=== PATIENT | female | born 1965 | race Hispanic/Latino ===

== ENCOUNTER → 2018-04-18 | Day surgery (SDC) | payer BC ==
[~2018-04-18] MED LIST: ASPIR 8181 MG PO; BALSALAZIDE DI750 MG PO; CINNAMON PO; COLACE100 MG PO; DIOVAN160 MG PO; LOSARTAN POTASS50 MG PO; MATZIM LA360 MG PO; MELOXICAM15 MG PO; MIDAZOLAM HCL 2 MG/2 ML VIAL ONE; PROPOFOL IV EMULSION 10 MG/ML 50 ML VIAL ONE; TRIAMTERENE-HCTZ1 EA PO; UCERIS PO; ZYRTEC10 M3 PO; [UNRECOGNIZED DRUG - OTHER] PO
[2018-04-18 09:30] VITALS: BP 132/77
--- NOTE | 2018-04-18 10:24 | Operative Report ---
DATE OF PROCEDURE: April 18, 2018 GASTROINTESTINAL PROCEDURE NOTE PREOPERATIVE DIAGNOSES: 1. Hematochezia. 2. History of Crohn's disease. POSTOPERATIVE DIAGNOSIS: Area in the sigmoid colon of active colitis. The area before, near, and after was normal. PROCEDURE PERFORMED: Colonoscopy. PREOPERATIVE MEDICATIONS: Consisted of general anesthesia. DESCRIPTION OF PROCEDURE: Using an [email or web address] video colonoscope, it was inserted into the patient's rectum and advanced without difficulty up into the sigmoid colon. At about 29 cm, we began picking up some edematous mucosa with erythema and friability, but no active ulcerations. This extended up to the beginning of the descending colon. Biopsies were obtained from the descending colon around to the cecum. The colon was normal. No polypoid lesions or tumor masses were seen. The colonoscope was withdrawn back down to the rectum, and the procedure was ended. In conclusion, we have findings of an active colitis, probably Crohn's colitis isolated to the sigmoid colon area. Otherwise, normal examination. Job#: [id number]
== END | disposition home or self-care (01) ==
LOC: OR 07:04
PROVIDERS: ATTEND Internal Medicine Gastroenterology
DX: K50.00 Crohn's disease of small intestine without complications (principal); I10 Essential (primary) hypertension; Z88.2 Allergy status to sulfonamides; Z88.8 Allergy status to other drugs, medicaments and biological substances; Z01.810 Encounter for preprocedural cardiovascular examination; Z68.42 Body mass index [BMI] 45.0-49.9, adult; Z80.0 Family history of malignant neoplasm of digestive organs
CPT/HCPCS: 45380; 93005; J2250; 45378; 45384

== ENCOUNTER 2020-03-12 18:24 | Emergency (ER) | payer BC, OTHER ==
[~2020-03-12] VITALS: Ht 160 cm; Wt 121.6 kg
[~2020-03-12 18:24] MED LIST changes: -MIDAZOLAM HCL 2 MG/2 ML VIAL ONE; -PROPOFOL IV EMULSION 10 MG/ML 50 ML VIAL ONE
--- OUTSIDE RECORDS SUMMARY | 2020-03-12 19:10 | XMS REPORT | Continuity of Care Document ---
Author Author Inofile EDGAR [facility] Address Unknown Phone Unavailable Care Team Providers Care Lokie Engineer Name Role Phone [employer] Unavailable Un available Problems Problem Status Onset Date Classification Date Reported Comments Source Acute Maxillary Sinusitis Acti ve 07/14/2013 [facility] Medications Medication Details Route Status Patient Instructions Ordering Provider Order Date Source Cefdinir 300 MG Oral Capsule ; Start Date: 07/14/2013; End Date: (Active) Active 07/14/2013 [facility] MethylPREDNISolone 4 MG Oral Tablet ; Start Date: 07/14/2013; End Date: (Active) Active 07/14/2013 [facility] Matzim LA 360 MG Oral Tablet Extended Release 24 Hour (Active) Active [facility] Diovan 160 MG Oral Tablet (Ac tive) Active [facility] Triamterene-HCTZ 37.5-25 MG Oral Tablet (Active) Active [facility] Levocetirizine Dihydrochloride 5 MG Oral Tablet (Active) Active [facility] TABS (Active) Active [facility] Allergies, Adverse Reactions, Alerts Substance Category Reaction Severity Reaction type Status Date Reported Comments Source Sulfa Drugs drug allergy drug allergy Active [facility] Tavist TABS drug allergy drug allergy Active [facility] Immunizations No Data Provided for This Section Results No Data Provided for This Section Pathology Reports No Data Provided for This Section Diagnostic Reports No Data Provided for This Section Consultation Notes No Data Provided for This Section Discharge Summaries No Data Provided for This Section History and Physicals No Data Provided for This Section Vital Signs No Data Provided for This Section Encounters Location Location Details Encounter Type Encounter Number Reason For Visit Attending Provider ADM Date DC Date Status Source AUDIT [id number] 07/14/2013 07/14/2013 [facility] Procedures No Data Provided for This Section Assessment and Plan No Data Provided for This Section Plan of Care No Data Provided for This Section Social History Social History Date Source Marital History - Currently (Active) Never A Smoker (Active) Never Drank Alcohol (Active) 07/14/2013 [facility] Family History Value Date S ource Fraternal history of Diabetes Mellitus ( V18.0); (Active) Sororal history of Arthritis (V17.7); (Active) 07/14/2013 [facility] Advance Directives Order Name Results Value Date Source Advance Directives Advance Dir ectives No Advance Directives available. 07/14/2013 [facility] Functional Status No Data Provided for This Section
--- OUTSIDE RECORDS SUMMARY | 2020-03-12 19:10 | XMS REPORT ---
Author Author EDGAR Velez Organization Unknown Address Unknown Phone Care Team Providers Care Auxiliary Equipment Tender Name Role Phone Reyna Velez PP Unavailable Reason for Referral No Reason for Referral was given. History of Present Illness No HPI available. Problems * Normal Routine History And Physical Adult (V70.0); (Active) * Acute Maxillary Sinusitis (461.0); (Active) Medication * Matzim LA 360 MG Oral Tablet Extended Release 24 Hour; TAKE 1 TABLET DAILY. (Active) * Diovan 160 MG Oral Tablet; TAKE 1 TABLET DAILY. (Active) * Triamterene-HCTZ 37.5-25 MG Oral Tablet; TAKE 1 TABLET DAILY PRN (Active) * Levocetirizine Dihydrochloride 5 MG Oral Tablet; TAKE 1 TABLET DAILY. (Active) * [facility] TABS; TAKE 2 TABLET 4 TIMES DAILY (Active) * Cefdinir 300 MG Oral Capsule; TAKE 1 CAPSULE TWICE DAILY UNTIL GONE.; Start Date: 07/14/2013; End Date: (Active) * MethylPREDNISolone 4 MG Oral Tablet; TAKE 1 TABLET DAILY.; Start Date: 07/14/2013; End Date: (Active) Allergies and Adverse Reactions * Sulfa Drugs (Active) * Tavist TABS (Active) Past Medical History * History of Hypertension (401.9); (Resolved) Family History * Fraternal history of Diabetes Mellitus (V18.0); (Active) * Sororal history of Arthritis (V17.7); (Active) Social History * Marital History - Currently (Active) * Never A Smoker (Active) * Never Drank Alcohol (Active) Advance Directives * No Advance Directives available. Encounters * AUDIT 07/14/2013
--- NOTE | 2020-03-12 19:16 | Emergency Department Note ---
History of Present Illnes History of Present Illness Chief Complaint: General Medicine Complaints History of Present Illness This is a 54 year old female presents to the ED [facility]. Patient was attempting to remove money from safe and inadvertantly lost balance and fell on her bottom with impact to the back of the head . Denies LOC or n/v. Historian: Patient Arrival Mode: Car Onset (how long ago): day(s) (1) Radiation: Reports non-radiation Severity: mild Onset quality: sudden Duration (how long): day(s) (1) Progression: unchanged Chronicity: new Context: Reports trauma/injury Relieving factors: none Exacerbating factors: none Associated symptoms: Denies fever/chills, Denies nausea/vomiting Past Medical/Family History Physician Review I have reviewed the patient's past medical and family history. Any updates have been documented here. Past Medical History Recent Fever: No Clinical Suspicion of Infectio: No New/Unexplained Change in Ment: No Past Medical History: Hypertension, Diabetes Past Surgical History: Cholecysctectomy, T&A Social History Smoking Cessation: Never Smoker Counseling Performed: No Alcohol Use: None Any Illegal Drug Use: No Physically hurt or threatened: No Other Any Pre-Existing Lines (PICC,: No Review of Systems Review of Systems Constitutional: Reports no symptoms EENTM: Reports no symptoms Cardiovascular: Reports no symptoms Respiratory: Reports no symptoms Gastrointestinal: Reports no symptoms Genitourinary: Reports no symptoms Musculoskeletal: Reports no symptoms Integumentary: Reports no symptoms Neurological: Reports headache Psychological: Reports no symptoms Endocrine: Reports no symptoms Hematological/Lymphatic: Reports no symptoms Physical Exam Related Data Allergies: Coded Allergies: acetaminophen (Verified Allergy, Unknown, 04/18/18) clemastine (Verified Allergy, Unknown, 04/18/18) pseudoephedrine (Verified Allergy, Unknown, 04/18/18) Uncoded Allergies: SULFA (Allergy, Unknown, 04/18/18) Triage Vital Signs Vital Signs Date Time Temp Pulse Resp B/P (MAP) Pulse Ox O2 Delivery O2 Flow Rate FiO2 03/12/20 18:31 98.3 79 16 158/88 98 Room Air Vital signs reviewed: Yes Physical Exam CONSTITUTIONAL Constitutional: Present well-developed, Present well-nourished HENT HENT: Present normocephalic, Present atraumatic, Present oropharynx clear/moist, Present nose normal HENT L/R: Present left ext ear normal, Present right ext ear normal EYES Eyes: Reports PERRL, Reports conjunctivae normal NECK Neck: Present ROM normal PULMONARY Pulmonary: Present effort normal, Present breath sounds normal CARDIOVASCULAR Cardiovascular: Present regular rhythm, Present heart sounds normal, Present capillary refill normal, Present normal rate GASTROINTESTINAL Abdominal: Present soft, Present nontender, Present bowel sounds normal GENITOURINARY Genitourinary: Present exam deferred SKIN Skin: Present warm, Present dry MUSCULOSKELETAL Musculoskeletal: Present ROM normal NEUROLOGICAL Neurological: Present alert, Present oriented x 3, Present no gross motor or sensory deficits PSYCHOLOGICAL Psychological: Present mood/affect normal, Present judgement normal Results Imaging Imaging results reviewed: Yes Impressions [place] [address] Patient Name: EDGAR RODRIGUEZ MR #: [id number] : 1965 Age/Sex: 54/F Req #: [id number] Adm Physician: Ordered by: JOHN CULLEN DO Report #: [id number] Location: ER Room/Bed: Procedure: [id number] CT/CT BRAIN WO Exam Date: 03/12/20 Exam Time: 1899 REPORT STATUS: Signed CT BRAIN WO HISTORY: Head injury COMPARISON: None. TECHNIQUE: Noncontrast axial scans were obtained from skull base to the vertex. Coronal and sagittal reconstructions obtained from the axial data. One or more of the following dose reduction techniques were used: Automated exposure control, adjustment of the mA and/or kV according to patient size, and/or utilization of iterative reconstruction technique. DISCUSSION: Scalp/Skull: Unremarkable. Brain sulci: Mildly prominent. Ventricles: Mild compensatory dilatation. Extra-axial spaces: No masses or fluid collections. Carotid siphon calcifications. Parenchyma: No abnormal densities. No mass, hemorrhage, or large vascular territory acute infarct. Dural sinuses: No abnormal densities. Sellar/Suprasellar region: Intact. Skull base: Intact. Incidental findings: None. IMPRESSION: 1. No acute intracranial abnormalities. 2. Mild generalized cerebral volume loss. Signed by: Dr. Konstantin Ellis M.D. on 03/12/2020 7:45 PM Dictated By: KONSTANTIN ELLIS MD 44 Transcribed By: BULMARO on 03/12/201944 COPY TO: JOHN CULLEN DO~ Assessment & Plan Medical Decision Making MDM Diff dx: SAH, SDH, epidural hematoma , skull fx, concussion Assessment & Plan Final Impression: (1) Head injury Depart Disposition: HOME, SELF-CARE Last Vital Signs Date Time Temp Pulse Resp B/P (MAP) Pulse Ox O2 Delivery O2 Flow Rate FiO2 03/12/20 18:31 98.3 79 16 158/88 98 Room Air Home Meds Reported Medications Cetirizine Hcl (ZYRTEC) 10 Mg Capsule, 10 MG PO PRN THERAPEUTICALLY SUBSTITUTED WITH LORATIDINE 10MG 04/17/18 Aspirin (ASPIR 81) 81 Mg Tablet.dr, 81 MG PO PRN 04/17/18 [Cinnamon] No Conflict Check, 350 MG PO DAILY 04/17/18 Meloxicam (MELOXICAM) 15 Mg Tablet, 15 MG PO DAILY 04/17/18 Losartan Potassium (LOSARTAN POTASSIUM) 50 Mg Tablet, 50 MG PO DAILY 04/17/18 Balsalazide Disodium (BALSALAZIDE DISODIUM) 750 Mg Capsule, 750 MG PO 2TID 03/14/14 Triamterene/Hctz (TRIAMTERENE-HCTZ 37.5-25 MG TB) 1 Ea Tab, 1 EACH PO PRN, TAB 03/14/14 Diltiazem Hcl (MATZIM LA) 360 Mg Tab.er.24h, 360 MG PO DAILY 03/14/14 JOHN CULLEN DO Mar 12, 2020 19:16
--- NOTE | 2020-03-12 19:49 | Diagnostic Imaging Report ---
CT BRAIN WO HISTORY: Head injury COMPARISON: None. TECHNIQUE: Noncontrast axial scans were obtained from skull base to the vertex. Coronal and sagittal reconstructions obtained from the axial data. One or more of the following dose reduction techniques were used: Automated exposure control, adjustment of the mA and/or kV according to patient size, and/or utilization of iterative reconstruction technique. DISCUSSION: Scalp/Skull: Unremarkable. Brain sulci: Mildly prominent. Ventricles: Mild compensatory dilatation. Extra-axial spaces: No masses or fluid collections. Carotid siphon calcifications. Parenchyma: No abnormal densities. No mass, hemorrhage, or large vascular territory acute infarct. Dural sinuses: No abnormal densities. Sellar/Suprasellar region: Intact. Skull base: Intact. Incidental findings: None. IMPRESSION: 1. No acute intracranial abnormalities. 2. Mild generalized cerebral volume loss. Signed by: Dr. Konstantin Ellis M.D. on 03/12/2020 7:45 PM
[2020-03-12 20:24] VITALS: BP 148/85
== END 2020-03-12 20:26 | disposition home or self-care (01) ==
LOC: ER 19:07
DX: S00.83XA Contusion of other part of head, initial encounter (principal); W01.0XXA Fall on same level from slipping, tripping and stumbling without subsequent striking against object, initial encounter; Y99.0 Civilian activity done for income or pay
CPT/HCPCS: 70450; 99283